=== PATIENT | female | born 1950 | race Hispanic/Latino ===

== ENCOUNTER 2022-04-27 02:43 | Inpatient (IN) | payer OTHER ==
--- OUTSIDE RECORDS SUMMARY | 2022-04-27 02:46 | XMS REPORT | Continuity of Care Document ---
:1950 Author Organization [facility] t Address [address] [place] [address] Dr. Lima [address] [place] [id number] Care Team Providers Name Role Phone Vish-Mbayo_A_AH Attending Clinician Unavailable Vish-Mbayo_A_AH Admitting Clinician Unavailable Payers Payer Name Policy Type Policy Number Effective Date Expiration Date S gerry [facility] - [id number] 2019 [employer] 00:00:00 (MEDICARE REPLACEMENT/ADVANT AGE - HMO) Problems This patient has no known problems. Allergies, Adverse Reactions, Alerts This patient has no known allergies or adverse reactions. Medications This patient has no known medications. Procedures This patient has no known procedures. Encounters Start End Encounter Admission Attending Care Care Encounter Source Date/Time Date/Time Type Type Clinicians Facility Department ID 2020-01-26 2020-01-26 Outpatient Vish-Mbayo VFP VFP [id number] [facility] 05:44:00 05:44:00 _A_AH [id number] Family Practic e 2020-01-26 2020-01-26 Outpatient Vish-Mbayo VFP VFP [id number] [facility] 05:44:00 05:44:00 _A_AH [id number] Family Practic e 2020-01-26 2020-01-26 Outpatient Vish-Mbayo VFP VFP [phone] [facility] 05:44:00 05:44:00 _A_AH [id number] Family Practic e 2020-01-26 2020-01-26 Outpatient Vish-Mbayo VFP VFP [id number] [facility] 05:44:00 05:44:00 _A_AH [id number] Family Practic e 2020-01-04 2020-01-04 Outpatient Vish-Mbayo VFP VFP [phone] [facility] 07:20:00 07:20:00 _A_AH [id number] Family Practic e Results This patient has no known results.
[2022-04-27] MEDS ORDERED: MORPHINE 2 MG/ML SYR ONE (04:37)
[2022-04-27] MEDS ORDERED: ONDANSETRON 4 MG/2 ML VIAL ONE (04:37)
[2022-04-27 05:21] LABS: Absolute Lymphocytes (CBC) 1.7 K/uL (0.7-4.9); Hematocrit 43.6 % (36.0-45.0); Lymphocytes % 15.2 % (15.3-44.8); MPV 8.9 fL (7.6-11.3); RBC Red Blood Cell Count 5.04 M/uL (3.86-4.86)
[2022-04-27 05:50] LABS: Potassium 3.9 mmol/L (3.5-5.1)
[2022-04-27] MEDS ORDERED: ASPIRIN 81 MG CHEWABLE TABLET ONE (06:15)
--- NOTE | 2022-04-27 07:30 | ER ---
Nurse's Notes [facility] Name: Linda Valerio Age: 71 yrs Sex: Female : 1950 Arrival Date: 04/27/2022 Time: 02:46 Bed 14 Private MD: Diagnosis: Subsequent non-ST elevation (NSTEMI) myocardial infarction Presentation: 04/27 03:02 Chief complaint: Patient's son or daughter states: She was complaining of right arm jb4 pain that started yesterday and nausea that started today and Chest pain that started upon arrival to the ED. The chest pain is a pressure pain. Coronavirus screen: At this time, the client does not indicate any symptoms associated with coronavirus-19. Ebola Screen: No symptoms or risks identified at this time. Initial Sepsis Screen: Does the patient meet any 2 criteria? No. Patient's initial sepsis screen is negative. Does the patient have a suspected source of infection? No. Patient's initial sepsis screen is negative. Risk Assessment: Do you want to hurt yourself or someone else? Patient reports no desire to harm self or others. Onset of symptoms was April 27, 2022. Transition of care: patient was not received from another setting of care. 03:02 Method Of Arrival: Wheelchair jb4 03:02 Acuity: MAKAYLA 3 jb4 Triage Assessment: 07:45 GI: Reports cramping. jd3 Historical: - Allergies: 03:04 No Known Allergies; jb4 - Home Meds: 03:04 amlodipine oral [Active]; atorvastatin oral [Active]; jb4 - PMHx: 03:04 HTN; High cholesterol; Hypothyroidism; jb4 - PSHx: 03:04 None; jb4 - Immunization history:: Adult Immunizations not up to date. - Social history:: Smoking status: Patient denies any tobacco usage or history of. Screenin:20 Abuse screen: Denies threats or abuse. Nutritional screening: No deficits noted. bb Tuberculosis screening: No symptoms or risk factors identified. Fall Risk None identified. Assessment: 03:20 General: Appears in no apparent distress. Behavior is calm, cooperative. Pain: bb Complains of pain in chest Pain radiates to right arm Pain began several weeks ago. Neuro: Level of Consciousness is awake, alert, obeys commands, Oriented to person, place, time, situation. Cardiovascular: Heart tones S1 S2 present Capillary refill < 3 seconds Patient's skin is warm and dry. Respiratory: Respiratory effort is even, unlabored, Respiratory pattern is regular, Breath sounds are clear bilaterally. GI: Abdomen is round Bowel sounds present X 4 quads. Abd is soft and non tender X 4 quads. Derm: Skin is pink, warm \T\ dry. Musculoskeletal: Circulation, motion, and sensation intact. 04:50 Reassessment: Patient is alert, oriented x 3, equal unlabored respirations, skin bb warm/dry/pink. pt ambulated with steady gait to the bathroom. 05:12 Reassessment: Patient is alert, oriented x 3, equal unlabored respirations, skin bb warm/dry/pink. IV site intact, patent, no erythema or edema noted, family at bedside awaiting diagnostic results Patient states feeling better. 06:15 Reassessment: pt sleeping, eyes closed, resp unlabored, arouses easily, awaiting bb diagnostic results family at bedside. 07:45 General: Appears in no apparent distress. comfortable, Behavior is calm, cooperative, jd3 appropriate for age. Pain: Complains of pain in chest Pain currently is 0 out of 10 on a pain scale. Quality of pain is described as aching. Neuro: Larsen Agitation-Sedation Scale (RASS): 0 - Alert and Calm Level of Consciousness is awake, alert, obeys commands, Oriented to person, place, time, situation. Cardiovascular: Capillary refill < 3 seconds Patient's skin is warm and dry. Rhythm is regular. Respiratory: Airway is patent Respiratory effort is even, unlabored, Respiratory pattern is regular, symmetrical, Denies cough, shortness of breath. GI: No signs and/or symptoms were reported involving the gastrointestinal system. : No signs and/or symptoms were reported regarding the genitourinary system. EENT: No signs and/or symptoms were reported regarding the EENT system. Derm: Skin is intact, Skin is dry, Skin is normal, Skin temperature is warm. Musculoskeletal: Circulation, motion, and sensation intact. Range of motion:. 08:36 Reassessment: No changes from previously documented assessment. Patient and/or family jd3 updated on plan of care and expected duration. Pain level reassessed. Patient is alert, oriented x 3, equal unlabored respirations, skin warm/dry/pink. 09:30 Reassessment: Patient appears in no apparent distress at this time. Patient and/or jd3 family updated on plan of care and expected duration. Pain level reassessed. Patient is alert, oriented x 3, equal unlabored respirations, skin warm/dry/pink. resting in bed on cell phone. awaiting admission. Vital Signs: 03:02 BP 135 / 73; Pulse 69; Resp 18; Temp 98.2(O); Pulse Ox 99% on R/A; Weight 95.25 kg (R); jb4 Height 5 ft. 4 in. (162.56 cm) (R); Pain 7/10; 05:12 BP 154 / 88; Pulse 67; Resp 16 S; Pulse Ox 93% on R/A; bb 06:16 BP 125 / 73; Pulse 69; Resp 16 S; Pulse Ox 94% on R/A; bb 07:15 BP 151 / 79; Pulse 70; Resp 17 S; Pulse Ox 97% on R/A; jd3 08:00 BP 142 / 74; Pulse 71; Resp 18 S; Pulse Ox 95% on R/A; jd3 09:00 BP 124 / 78; Pulse 67; Resp 16 S; Pulse Ox 95% on R/A; jd3 03:02 Body Mass Index 36.05 (95.25 kg, 162.56 cm) jb4 ED Course: 02:46 Patient arrived in ED. bp1 03:04 Triage completed. jb4 03:04 Arm band placed on left wrist. jb4 03:19 Karyn Power, RN is Primary Nurse. bb 03:20 Patient has correct armband on for positive identification. Placed in gown. Bed in low bb position. Call light in reach. Side rails up X 1. Adult w/ patient. Client placed on continuous cardiac and pulse oximetry monitoring. NIBP monitoring applied. 03:24 Jignesh Shelton MD is Attending Physician. [facility] 03:30 Initial lab(s) drawn, by me, sent to lab. Inserted saline lock: 20 gauge in right bb antecubital area, using aseptic technique. Blood collected. 04:16 XRAY Chest (1 view) In Process Unspecified. EDMS 05:57 Notified ED physician of a critical lab result(s). troponin of [address] Dr Shelton notified. bb 07:[address] Painter the business support associate manager business information with Dr. Shelton. eb 07:28 Laure Anand MD is Hospitalizing Provider. 7 08:32 Primary Nurse role handed off by Karyn Power RN eb 08:32 Frank Jules RN is Primary Nurse. jd3 09:52 No provider procedures requiring assistance completed. Patient admitted, IV remains in jd3 place. 10:00 Notified ED physician of a critical lab result(s). 200 PTT. provider note lab draw was jd3 to soon after loading dose and infusion start. PTT to be redrawn at 1145 per protocol. 10:21 Kamlesh Leonard MD is Hospitalizing Provider. kdr Administered Medications: 05:04 Drug: morphine 2 mg Route: IVP; Infused Over: 4 mins; Site: right antecubital; bb 06:02 Follow up: Response: Pain is decreased bb 05:04 Drug: Zofran (Ondansetron) 4 mg Route: IVP; Site: right antecubital; bb 06:02 Follow up: Response: No adverse reaction bb 06:15 Drug: Aspirin Chewable Tablet 324 mg Route: PO; bb 08:17 Follow up: Response: No adverse reaction jd3 07:45 Drug: Heparin (HI-Bolus No thrombolytic) - HEParin 60 units/kg {Co-Signature: iw (Mercedez Church RN).} Route: IVP; Site: right antecubital; 08:45 Follow up: Response: No adverse reaction jd3 07:45 Drug: Heparin (HI Drip) 12 units/kg/hr - (HEParin 10967 units, D5W 500 ml) jd3 {Co-Signature: stephanie (Mercedez Church RN).} Route: IV; Rate: calculated rate; Site: right antecubital; 08:45 Follow up: Response: No adverse reaction; IV Status: Infusion continued upon admission jd3 Medication: 08:34 VIS not applicable for this client. jd3 Outcome: 07:29 Decision to Hospitalize by Provider. 7 09:52 Condition: stable jd3 09:52 Instructed on the need for admit, Demonstrated understanding of instructions. 13:48 Patient left the ED. iw Signatures: Dis[facility] Bill Burgos MD MD kdr Karyn Power RN RN bb Mercedez Church RN RN iw Brian Wright RN RN jb4 Frank Jules RN RN jd3 Iris Campa Brittany bp1 Holmes, Maurice, MD MD mh7 Mercedez Church RN iw Corrections: (The following items were deleted from the chart) 08:37 08:36 BP 142 / 74; Pulse 71bpm; Resp 18bpm; Spontaneous; Pulse Ox 95% RA; jd3 jd3
--- NOTE | 2022-04-27 07:30 | EDPHYS ---
Physician Documentation [facility] Name: Linda Valerio Age: 71 yrs Sex: Female : 1950 Arrival Date: 04/27/2022 Time: 02:46 Bed 14 Private MD: ED Physician Jignesh Shelton HPI: 04/27 03:30 This 71 yrs old Unknown Female presents to ER via Wheelchair with complaints of Nausea, mh7 Arm Pain, Chest Pain > 30 y/o. 03:30 The patient or guardian reports chest pain that is located primarily in the substernal mh7 area. 03:30 Onset: yesterday. The pain does not radiate. Associated signs and symptoms: Pertinent mh7 positives: nausea, Pertinent negatives: cough, diaphoresis, dizziness, headache, lower extremity pain, lower extremity swelling, lightheadedness, near syncope, palpitations, recent travel, shortness of breath, syncope, vomiting. The chest pain is described as a pressure. Duration: The patient or guardian reports multiple episodes, that are intermittent, that wax and wane, with no pattern. Modifying factors: The symptoms are alleviated by nothing. the symptoms are aggravated by nothing. Severity of pain: At its worst the pain was moderate in the emergency department the pain has improved moderately. Historical: - Allergies: 03:04 No Known Allergies; jb4 - Home Meds: 03:04 amlodipine oral [Active]; atorvastatin oral [Active]; jb4 - PMHx: 03:04 HTN; High cholesterol; Hypothyroidism; jb4 - PSHx: 03:04 None; jb4 - Immunization history:: Adult Immunizations not up to date. - Social history:: Smoking status: Patient denies any tobacco usage or history of. ROS: 03:30 Constitutional: Negative for fever, chills, and weight loss, Eyes: Negative for injury, mh7 pain, redness, and discharge, ENT: Negative for injury, pain, and discharge, Neck: Negative for injury, pain, and swelling, Respiratory: Negative for shortness of breath, cough, wheezing, and pleuritic chest pain, Back: Negative for injury and pain, : Negative for injury, bleeding, discharge, and swelling, MS/Extremity: Negative for injury and deformity, Skin: Negative for injury, rash, and discoloration, Neuro: Negative for headache, weakness, numbness, tingling, and seizure, Psych: Negative for depression, anxiety, suicide ideation, homicidal ideation, and hallucinations, Allergy/Immunology: Negative for hives, rash, and allergies, Endocrine: Negative for neck swelling, polydipsia, polyuria, polyphagia, and marked weight changes, Hematologic/Lymphatic: Negative for swollen nodes, abnormal bleeding, and unusual bruising. Exam: 03:30 Constitutional: This is a well developed, well nourished patient who is awake, alert, mh7 and in no acute distress. Head/Face: Normocephalic, atraumatic. Eyes: Pupils equal round and reactive to light, extra-ocular motions intact. Lids and lashes normal. Conjunctiva and sclera are non-icteric and not injected. Cornea within normal limits. Periorbital areas with no swelling, redness, or edema. Neck: Trachea midline, no thyromegaly or masses palpated, and no cervical lymphadenopathy. Supple, full range of motion without nuchal rigidity, or vertebral point tenderness. No Meningismus. Chest/axilla: Normal chest wall appearance and motion. Nontender with no deformity. No lesions are appreciated. Cardiovascular: Regular rate and rhythm with a normal S1 and S2. No gallops, murmurs, or rubs. Normal PMI, no JVD. No pulse deficits. Respiratory: Lungs have equal breath sounds bilaterally, clear to auscultation and percussion. No rales, rhonchi or wheezes noted. No increased work of breathing, no retractions or nasal flaring. Abdomen/GI: Soft, non-tender, with normal bowel sounds. No distension or tympany. No guarding or rebound. No evidence of tenderness throughout. Back: No spinal tenderness. No costovertebral tenderness. Full range of motion. Skin: Warm, dry with normal turgor. Normal color with no rashes, no lesions, and no evidence of cellulitis. MS/ Extremity: Pulses equal, no cyanosis. Neurovascular intact. Full, normal range of motion. Neuro: Awake and alert, GCS 15, oriented to person, place, time, and situation. Cranial nerves II-XII grossly intact. Motor strength 5/5 in all extremities. Sensory grossly intact. Cerebellar exam normal. Normal gait. Psych: Awake, alert, with orientation to person, place and time. Behavior, mood, and affect are within normal limits. Vital Signs: 03:02 BP 135 / 73; Pulse 69; Resp 18; Temp 98.2(O); Pulse Ox 99% on R/A; Weight 95.25 kg (R); jb4 Height 5 ft. 4 in. (162.56 cm) (R); Pain 7/10; 05:12 BP 154 / 88; Pulse 67; Resp 16 S; Pulse Ox 93% on R/A; bb 06:16 BP 125 / 73; Pulse 69; Resp 16 S; Pulse Ox 94% on R/A; bb 07:15 BP 151 / 79; Pulse 70; Resp 17 S; Pulse Ox 97% on R/A; jd3 08:00 BP 142 / 74; Pulse 71; Resp 18 S; Pulse Ox 95% on R/A; jd3 09:00 BP 124 / 78; Pulse 67; Resp 16 S; Pulse Ox 95% on R/A; jd3 03:02 Body Mass Index 36.05 (95.25 kg, 162.56 cm) jb4 MDM: 07:22 Differential diagnosis: abnormal EKG, acute myocardial infarction, acute pericarditis, mh7 anxiety, coronary artery disease chest wall pain, costochondritis, gastritis, gastroesophageal reflux disease (GERD). HEART Score: History: Moderately Suspicious (1), ECG: Non specific repolarization disturbance / LBTB / PM (1), Age: > or = 65 years (2), Risk Factors: 1 or 2 risk factors (1), [Hypercholesterolemia] Troponin: > or = 3 x Normal Limit (2), Total Score = 7. Data reviewed: vital signs, nurses notes, lab test result(s), cardiac enzymes, CBC, electrolytes, radiologic studies, plain films. Data interpreted: Pulse oximetry: on room air is 96 %. Interpretation: normal. Counseling: I had a detailed discussion with the patient and/or guardian regarding: the historical points, exam findings, and any diagnostic results supporting the discharge/admit diagnosis, lab results, radiology results, the need for further work-up and treatment in the hospital. Response to treatment: the patient's symptoms have mildly improved after treatment. Physician consultation: Filemon Hernandez MD regarding patient's condition, and will see patient in inpatient room. 07:29 Patient medically screened. mh7 04/27 03:19 Order name: Basic Metabolic Panel; Complete Time: 06:02 04/27 03:19 Order name: CBC with Diff; Complete Time: 06:02 bb 04/27 03:19 Order name: Troponin HS; Complete Time: 06:02 bb 04/27 05:19 Order name: NT PRO-BNP; Complete Time: 06:02 EDMS 04/27 05:19 Order name: Lipase; Complete Time: 06:02 EDMS 04/27 07:38 Order name: Basic Metabolic Panel EDMS 04/27 07:38 Order name: CBC with Automated Diff EDMS 04/27 07:38 Order name: PTT, Activated Partial Thromb; Complete Time: 10:14 EDMS 04/27 07:38 Order name: CKMB Creatine Kinase MB EDMS 04/27 07:38 Order name: CKMB Creatine Kinase MB; Complete Time: 10:14 EDMS 04/27 07:38 Order name: CKMB Creatine Kinase MB EDMS 04/27 07:38 Order name: CKMB Creatine Kinase MB EDWA 04/27 03:19 Order name: XRAY Chest (1 view) 04/27 03:19 Order name: EKG; Complete Time: 03:20 04/27 07:38 Order name: CONS Physician Consult EDWA 04/27 07:38 Order name: EKG Electrocardiogram EDWA 04/27 07:38 Order name: Creatine Phosphokinase EDWA 04/27 07:38 Order name: Creatine Phosphokinase; Complete Time: 10:14 EDMS 04/27 07:38 Order name: Creatine Phosphokinase EDWA 04/27 07:38 Order name: Creatine Phosphokinase EDWA 04/27 08:23 Order name: SARS-COV-2 RT PCR (Document "Date of Onset" if Symptomatic) 04/27 09:39 Order name: SARS-COV-2 RT PCR; Complete Time: 10:14 EDMS 04/27 13:24 Order name: PTT, Activated Partial Thromb EDWA 04/27 03:19 Order name: Cardiac monitoring; Complete Time: 04:50 04/27 03:19 Order name: EKG - Nurse/Tech; Complete Time: 04:50 04/27 03:19 Order name: IV Saline Lock; Complete Time: 04:50 04/27 03:19 Order name: Labs collected and sent; Complete Time: 05:04 bb 04/27 03:19 Order name: O2 Per Protocol; Complete Time: 04:50 04/27 03:19 Order name: O2 Sat Monitoring; Complete Time: 04:50 04/27 07:38 Order name: EKG Electrocardiogram EDMS 04/27 07:38 Order name: EKG Electrocardiogram EDMS 04/27 07:38 Order name: EKG Electrocardiogram EDMS Administered Medications: 05:04 Drug: morphine 2 mg Route: IVP; Infused Over: 4 mins; Site: right antecubital; bb 06:02 Follow up: Response: Pain is decreased bb 05:04 Drug: Zofran (Ondansetron) 4 mg Route: IVP; Site: right antecubital; bb 06:02 Follow up: Response: No adverse reaction bb 06:15 Drug: Aspirin Chewable Tablet 324 mg Route: PO; bb 08:17 Follow up: Response: No adverse reaction jd3 07:45 Drug: Heparin ([place]-Bolus No thrombolytic) - HEParin 60 units/kg {Co-Signature: stephanie (Mercedez Church RN).} Route: IVP; Site: right antecubital; 08:45 Follow up: Response: No adverse reaction jd3 07:45 Drug: Heparin ([place] Drip) 12 units/kg/hr - (HEParin 33512 units, D5W 500 ml) jd3 {Co-Signature: stephanie (Mercedez Church RN).} Route: IV; Rate: calculated rate; Site: right antecubital; 08:45 Follow up: Response: No adverse reaction; IV Status: Infusion continued upon admission jd3 Disposition Summary: 04/27/22 07:29 Hospitalization Ordered Hospitalization Status: Inpatient Admission [facility] Condition: Stable [facility] Problem: new 7 Symptoms: have improved 7 Bed/Room Type: Standard [facility] Provider: Kamlesh Leonard(04/27/22 10:21) [facility] Room Assignment: [facility](04/27/22 11:22) [facility] Diagnosis - Subsequent non-ST elevation (NSTEMI) myocardial infarction [facility] Forms: - Medication Reconciliation Form mh7 - SBAR form 7 Signatures: Dispatcher [employer] EDBill Mandujano MD MD kdr Ballard, Brenda RN RN Brian Carlos, RN RN jb4 Frank Jules RN RN jd3 Jose Lizarraga RN RN ja1 Jignesh Shelton MD MD 7 Mercedez Church RN Corrections: (The following items were deleted from the chart) 05:18 03:23 PROBNP+C.LAB.BRZ ordered. EDMS EDMS 05:19 04:55 LIPASE+C.LAB.BRZ ordered. EDMS EDMS 10:21 07:29 Laure Anand [address] 11:22 07:29 Zach montgomery1
[2022-04-27] MEDS ORDERED: NITROGLYCERIN 0.4 MG/TAB SL PRN (07:32)
[2022-04-27] MEDS ORDERED: MORPHINE 4 MG/ML SYR IV PRN (07:32)
[2022-04-27] MEDS ORDERED: ONDANSETRON 4 MG/2 ML VIAL IV PRN (07:35)
[2022-04-27] MEDS ORDERED: HEPARIN 5000 UNIT/ML 1 ML VIAL ONE (07:47)
[2022-04-27] MEDS ORDERED: HEPARIN/D5W 25,000 UNIT/500 ML BAG IV SCH (08:00)
[2022-04-27] MEDS: ASPIRIN 325 MG TAB PO SCH ×2 (09:00)
[2022-04-27 10:04] LABS: CKMB Creatine Kinase MB 65.9 ng/mL (1.0-3.6)
[2022-04-27] MEDS ORDERED: ASPIRIN EC 325 MG TABLET PO ONE (10:56)
[2022-04-27 11:39] VITALS: BMI 36.0
--- NOTE | 2022-04-27 12:32 | P.HP ---
Certification for Inpatient Patient admitted to: Inpatient With expected LOS: >2 Midnights Patient will require the following post-hospital care: None Practitioner: I am a practitioner with admitting privileges, knowledge of patient current condition, hospital course, and medical plan of care. Services: Services provided to patient in accordance with Admission requirements found in Title 42 Section 412.3 of the Code of Federal Regulations Patient History Date of Service: 04/27/22 Reason for admission: Chest pain History of Present Illness: Patient is a 71-year-old female with a past medical history significant for hypertension, hyperlipidemia, hypothyroidism, allergic rhinitis, Obesity who presents with complaint of chest pain that has been ongoing intermittently for the past 2 weeks. Patient reported that chest pain became worse this morning when she woke up. Patient indicated that chest pain is located in the left chest wall and radiates to the right chest wall, right shoulder, right arm and to her back. Patient rated pain as 10/10 and described pain as pressure\stabbing in quality. Patient reported associated signs and symptoms of nausea, diaphoresis and headache. Patient denies any other signs and symptoms. Symptoms are aggravated or relieved by nothing. Patient decided to present to the hospital due to worsening symptoms. Allergies No Known Allergies Allergy (Verified 04/27/22 10:58) Home medications list reviewed: Yes Home Medications: Amlodipine [Norvasc] 5 mg PO DAILY 04/27/22 Atorvastatin Calcium 40 mg PO DAILY 04/27/22 - Past Medical/Surgical History Has patient received pneumonia vaccine in the past: No Diabetic: No -: hyperlipidemia -: HTN -: lipoma on rt shoulder -: tubal - Social History Smoking Status: Never smoker Alcohol use: No CD- Drugs: No Caffeine use: Yes Place of Residence: Home Review of Systems General: Other (Diaphoresis ) Eyes: Unremarkable ENT: Unremarkable Respiratory: Unremarkable Cardiovascular: Chest Pain Gastrointestinal: Unremarkable Genitourinary: Unremarkable Musculoskeletal: Shoulder Pain, Arm Pain, Back Pain Integumentary: Unremarkable Neurological: Other (Headache ) Lymphatics: Unremarkable Physical Examination - Vital Signs Temperature: 98.4 F Blood Pressure: 122/73 Pulse: 65 Pulse Ox (%): 97 - Physical Exam General: Alert, Oriented x3 HEENT: Normocephalic, PERRLA Neck: 2+ carotid pulse no bruit, JVD not distended Respiratory: Clear to auscultation bilaterally, Normal air movement Cardiovascular: No edema, Normal pulses, Regular rate/rhythm Capillary refill: <2 Seconds Gastrointestinal: Normal bowel sounds, Soft and benign Musculoskeletal: No clubbing, No swelling, No contractures, No erythema Integumentary: No rashes, No breakdown, No tenderness/swelling, No erythema Neurological: Normal speech, Normal strength at 5/5 x4 extr, Normal affect Lymphatics: No axilla or inguinal lymphadenopathy - Studies Laboratory Data (last 24 hrs) 04/27/22 04:55: Lipase Cancelled 04/27/22 04:35: WBC 10.9, Hgb 14.5, Hct 43.6, Plt Count 289 04/27/22 04:35: Sodium 137, Potassium 3.9, BUN 12, Creatinine 0.79, Glucose 153 H, Lipase 168 Assessment and Plan - Plan --NSTEMI. Troponin elevated. We will continue to trend serial troponins. Cardiology consulted. Patient started on heparin drip. Telemetry to monitor for any significant arrhythmia. Echocardiogram pending. Will await further recommendation from cloud automation tester. --Hypertension. Poorly controlled Continue home medications and hydralazine as needed. --HLD. Continue statin. --Class II obesity. Likely secondary to excess calories intake. Patient counseled on weight reduction, diet and exercise therapy. --Allergic rhinitis. Cetirizine as needed. --Acute pain. We will manage pain with current pain medication regimen. --Rhabdomyolysis. Patient placed on IV hydration. Will reassess CPK in a.m. --DVT prophylaxis with heparin drip. Discharge Plan: Home Plan to discharge in: Greater than 2 days - Advance Directives Does patient have a Living Will: No Does patient have a Durable POA for Healthcare: No - Code Status/Comfort Care Code Status Assessed: Yes Code Status: Full Code Physician Review: Patient Assessed, Agree with Above Assessment and Plan Critical Care: No
[2022-04-27 13:28] LABS: Lymphocytes % 17.6 % (15.3-44.8); MPV 8.1 fL (7.6-11.3); RBC Red Blood Cell Count 4.85 M/uL (3.86-4.86)
[2022-04-27] MEDS ORDERED: HYDRALAZINE HCL 20 MG/ML VIAL IV PRN (13:36)
[2022-04-27] MEDS ORDERED: CETIRIZINE HCL 5 MG TABLET PO PRN (13:39)
[2022-04-27 13:55] LABS: Potassium 4.2 mmol/L (3.5-5.1)
[2022-04-27] MEDS: NA CHLORIDE 0.9% 1,000 ML IV SCH (14:00)
[2022-04-27 16:51] LABS: CKMB Creatine Kinase MB 56.5 ng/mL (1.0-3.6)
--- NOTE | 2022-04-27 18:34 | CON ---
Date of Consultation: 04/27/2022 Reason For Consultation: Non-ST elevation myocardial infarction. History Of Present Illness: Ms. Valerio is a 71-year-old woman. Has a history of hypertension, dyslipidemia, hypothyroidism. Came in with 2-3 days of intermittent chest pain, nausea; symptoms rad iated to the arm, especially with exertion, lasted 30 minutes to an hour. Denied any vomiting, diaph oresis, PND, orthopnea, pedal edema, palpitation, or syncope. EKG was nonspecific, but troponin was 2539 consistent with IL. The patient is presently on heparin and she is asymptomatic. Allergies: NONE. Review of Systems: Negative. Social History: Negative. Family History: Noncontributory. Medications: At home include Lipitor and Norvasc. Physical Examination: Vital Signs: Stable. She was afebrile. HEENT: Negative. Neck: Supple with no bruit. Chest: Clear. Cardiac: Revealed a regular rhythm and rate. No murmurs, gallops, or rubs. Abdomen: Benign. Extremities: Revealed no clubbing, cyanosis, or edema. Diagnostic Data: As stated earlier. Impression And Plan: 1.Non-ST segment elevation myocardial infarction. 2.Hypertension. 3.Dyslipidemia. 4.Hypothyroidism. I will continue the patient on heparin. She should be on a baby aspirin and stat in as well as a low-dose beta-opal. We will plan a heart catheterization on 04/28/2022 to define her coronary anatomy. Also, an echocardiogram is pending. The patient understands the risk and the benefits of the procedure. She agrees to proceed. We will stop the heparin on-call to the warehouse general laborer. NATALIIA/TAMICA Voice ID: [id number] Report ID: [id number]
[2022-04-28 00:26] LABS: CKMB Creatine Kinase MB 27.7 ng/mL (1.0-3.6)
[2022-04-28] MEDS: NA CHLORIDE 0.9% 1,000 ML IV SCH ×2 (03:20→06:03)
[2022-04-28 04:27] LABS: Creatine Phosphokinase 413 U/L (26-192); NT PRO-BNP 3880 pg/mL (<125)
[2022-04-28] MEDS: ASPIRIN 325 MG TAB PO SCH (05:51)
[2022-04-28] MEDS ORDERED: PNEUMOCOCCAL VACCINE 0.5 ML IMVAC ONE (08:00)
[2022-04-28] MEDS ORDERED: AMLODIPINE 5 MG TAB PO SCH (09:00)
[2022-04-28] MEDS ORDERED: ATORVASTATIN 40 MG TAB PO SCH (09:00)
[2022-04-28] MEDS ORDERED: NA CHLORIDE 0.9% 500 ML ONE (09:03)
[2022-04-28] MEDS ORDERED: FENTANYL CITR 100 MCG/2 ML ONE (10:31)
[2022-04-28] MEDS ORDERED: MIDAZOLAM HCL 2 MG/2 ML INJ ONE (10:32)
[2022-04-28] MEDS ORDERED: NA CHLORIDE 0.9% 50 ML ONE (10:32)
[2022-04-28] MEDS ORDERED: ATROPINE SULF 1 MG/10 ML SYR IV ONE (10:32)
[2022-04-28] MEDS ORDERED: LIDOCAINE 1% 20 ML MDV ONE (10:33)
[2022-04-28] MEDS ORDERED: NITROGLYCERIN 100 MCG/ML SYR (for cath lab use only) IV ONE (10:33)
[2022-04-28] MEDS ORDERED: PRASUGREL (EFFIENT) 10 MG TAB ONE (11:28)
--- NOTE | 2022-04-28 12:26 | OP ---
Date of Procedure: 04/28/2022 Surgeon: Filemon Hernandez MD Ob Scrub Tech: Ms. Aline Patrick. Admitted to Dr. Leonard and Dr. Anand on 04/27/2022. Procedure In Detail: She was admitted with non-STEMI and brought to the collaborative physician on 04/28/2022, prep ped and draped in the routine sterile fashion. She was given Versed and fentanyl for sedation. A 6- Egyptian sheath introduced in the right common femoral artery successfully using Seldinger technique an d 10 cc of Xylocaine. Common femoral artery angiogram was normal. Angio-Seal was used to close the case. The patient underwent left heart catheterization, selective coronary arteriogram, common femor al artery angiogram, and primary stent of the LAD from the ostium to the proximal LAD. The Ismon c atheters initially were used to do the diagnostic catheterization. A JR4 was used to cannulated the right main. Her RCA was normal, small. Circumflex was normal. Left main was normal. The ostial LA D had 70% stenosis extending all the way to the mid LAD. In the mid LAD, there was a 95% stenosis wi th DONTA 2 flow. There was about a 30% to 40% ramus stenosis. We decided to intervene. A guide cath eter XBLAD, 6-Egyptian with side hole was used to cannulate the left main. A [place] wire 0.014 was use d to cross the lesion successfully. Two overlapping stents 2.5 x 16 were used to cover the entire re gion from the ostial to the mid LAD with excellent result 0% residual, no complication. Final angiog barry was done after given intracoronary nitroglycerin 100 mcg x2 with normal flow, no dissection, no thrombus. Total conscious sedation was 60 minutes. The patient received Angiomax during the proced ure. She received aspirin in the morning. She will receive 60 mg of Effient after the procedure was done. There were no complications. Blood loss was 5 mL. Postoperative Diagnosis: Coronary artery disease, status post successful primary LAD stent. Plan: To continue medical therapy, home today. She will go home on statin. She is on Norvasc alrea dy. I will put her on aspirin and Plavix. I will see her in the office in 2 weeks. I will discuss the case further with Dr. Marrero who is covering for Dr. Leonard today. NATALIIA/TAMICA Voice ID: [id number] Report ID: [id number]
--- NOTE | 2022-04-28 12:35 | RAD REPORT ---
EXAM DESCRIPTION: RAD - Chest Single View - 04/27/2022 4:14 am CLINICAL HISTORY: 71 years Female, CHEST PAIN COMPARISON: None. TECHNIQUE: Single portable x-ray view of the chest performed on 04/27/2022 at 4:11 AM FINDINGS: The lungs are relatively well-expanded. There is mild hazy opacification of the inferior h emithoraces which may be due to fibrosis and/or atelectasis. No dense airspace consolidation is ident ified. There is no evidence of a pneumothorax. The cardiac silhouette is normal in size and configuration. The mediastinal contours are normal. No acute osseous abnormality is identified. No acute soft tissue abnormalities are seen. Lines and tubes: None. Free air: None IMPRESSION: Mild hazy opacification of the inferior hemithoraces which may be due to fibrosis and/or atelectasis. The lungs are otherwise grossly clear. Electronically signed by: Kristal Cao DO 04/27/2022 6:21 AM CDT Due to temporary technical issues with the PACS/Fluency reporting system, reports are being signed by the in house radiologist without review as a courtesy to ensure prompt reporting. The interpreting r adiologist is fully responsible for the content of the report.
[2022-04-28 12:55] VITALS: O2SAT 97
--- NOTE | 2022-04-28 13:36 | EKG ---
Test Date: 2022-04-27 Test Time: 03:09:24 Bilingual Social Worker: MADONNA MEASUREMENT RESULTS: Intervals: Rate: 68 MA: 150 QRSD: 78 QT: 402 QTc: 427 Mona: P: 43 MA: 150 QRS: 8 T: 85 INTERPRETIVE STATEMENTS: Normal sinus rhythm Possible Anterior infarct, age undetermined Abnormal ECG No previous ECG available for comparison Electronically Signed On 04-28-22 13:34:10 CDT by Jeffry Connor
[2022-04-28] MEDS ORDERED: ACETAMINOPHEN 325 MG TABLET PO PRN (14:11)
[2022-04-28] MEDS ORDERED: NITROGLYCERIN 0.4 MG/TAB SL PRN (14:11)
[2022-04-28] MEDS ORDERED: NA CHLORIDE 0.9% 1,000 ML IV PRN (14:12)
[2022-04-28] MEDS ORDERED: MORPHINE 4 MG/ML SYR IV PRN (14:14)
[2022-04-28] MEDS ORDERED: MORPHINE 2 MG/ML SYR IV PRN (14:15)
[2022-04-28 17:54] VITALS: BP 119/68; TEMP 97.4
== END 2022-04-28 18:27 | disposition home or self-care (01) | DRG 247 ==
LOC: ER 02:43 → ERHOLD 07:31 → 2ND 11:25
PROVIDERS: ADMIT Internal Medicine; ATTEND Hospitalist
PROC: 027035Z Dilation of Coronary Artery, One Artery with Two Drug-eluting Intraluminal Devices, Percutaneous Approach (ICD-10-PCS; principal; 2022-04-28)
PROC: 4A023N7 Measurement of Cardiac Sampling and Pressure, Left Heart, Percutaneous Approach (ICD-10-PCS; 2022-04-28)
PROC: B201YZZ Plain Radiography of Multiple Coronary Arteries using Other Contrast (ICD-10-PCS; 2022-04-28)
DX: I21.4 Non-ST elevation (NSTEMI) myocardial infarction (principal); M62.82 Rhabdomyolysis; I10 Essential (primary) hypertension; E78.5 Hyperlipidemia, unspecified; E03.9 Hypothyroidism, unspecified; J30.9 Allergic rhinitis, unspecified; R52 Pain, unspecified; Z79.899 Other long term (current) drug therapy; E66.09 Other obesity due to excess calories; Z68.36 Body mass index [BMI] 36.0-36.9, adult; Z71.3 Dietary counseling and surveillance; Z20.822 Contact with and (suspected) exposure to COVID-19
CPT/HCPCS: 36415; 71045; 80048; 80061; 82550; 82553; 83036; 83690; 83880; 84484; 85025; 85347; 85730; 92928; 93005; 93454; 94760; 96365; 96375; 99285; C1725; C1760; C1877; C1893; G0269; J0583; J1644; J2250; J2270; J2405; J3010; J7030; J7040; Q9967; U0003

== ENCOUNTER 2022-09-01 22:23 | Emergency (ER) | payer OTHER ==
--- OUTSIDE RECORDS SUMMARY | 2022-09-01 22:26 | XMS REPORT | Continuity of Care Document ---
:1950 Author Organization [facility] t Address [address] [place] [address] [place] [id number] Care Team Providers Name Role Phone Vish-Mbayo_A_AH Attending Clinician Unavailable Vish-Mbayo_A_AH Admitting Clinician Unavailable Payers Payer Name Policy Type Policy Number Effective Date Expiration Date S gerry [facility] - [id number] 2019 [employer] 00:00:00 (MEDICARE REPLACEMENT/ADVANT AGE - [...] 2020-01-26 2020-01-26 Outpatient Vish-Mbayo VFP VFP [id number] [facility] 05:44:00 05:44:00 _A_AH [id number] Family Practic e 2020-01-26 2020-01-26 Outpatient Vish-Mbayo VFP VFP [id number] [facility] 05:44:00 05:44:00 _A_AH [id number] Family Practic e 2020-01-26 2020-01-26 Outpatient Vish-Mbayo VFP VFP [id number] [facility] 05:44:00 05:44:00 _A_AH [id number] Family Practic e 2020-01-26 2020-01-26 Outpatient Vish-Mbayo VFP VFP [id number] [facility] 05:44:00 05:44:00 _A_AH [id number] Family Practic e 2020-01-04 2020-01-04 Outpatient Vish-Mbayo VFP VFP [id number] [facility] 07:20:00 07:20:00 _A_ [id number] Family Practic e Results This patient has no known results.
[2022-09-01 23:50] LABS: Absolute Lymphocytes (CBC) 1.6 K/uL (0.7-4.9); Hematocrit 39.8 % (36.0-45.0); Lymphocytes % 18.5 % (15.3-44.8); MCV 87.9 fL (80-100); MPV 8.3 fL (7.6-11.3); RBC Red Blood Cell Count 4.53 M/uL (3.86-4.86)
[2022-09-02 00:07] LABS: Potassium 3.6 mmol/L (3.5-5.1); Troponin High Sensitivity 16.9 pg/mL (<58.9)
--- NOTE | 2022-09-02 01:28 | EDPHYS ---
Physician Documentation [facility] Name: Linda Valerio Age: 71 yrs Sex: Female : 1950 Arrival Date: 09/01/2022 Time: 22:26 Bed 12 Private MD: ED Physician Bernabe Bradford HPI: 09/02 00:04 This 71 yrs old Unknown Female presents to ER via Ambulatory with complaints of High kb Blood Pressure. 00:04 The patient has elevated blood pressure and discovered this at home, with a home kb device. Onset: The symptoms/episode began/occurred today. Associated signs and symptoms: The patient has no apparent associated signs or symptoms. Severity of symptoms: At its worst the blood pressure was 200 mm Hg. The patient has not experienced similar symptoms in the past. The patient has not recently seen a physician. Pt states she started feeling unwell today ("I can't describe it") so she checked her bp. States it was high and it has only gotten higher throughout the day. It was over 200 before coming in tonight. Reports she has had intermittent chest pain in the past, but no chest pain today. Denies dizziness, headache. Historical: - Allergies: 09/01 23:11 No Known Allergies; kd3 - Home Meds: 23:13 atorvastatin 80 mg oral tab 1 tab once daily [Active]; clopidogrel 75 mg oral tab 1 tab kd3 once daily [Active]; Ino Chewable Aspirin 81 mg oral chew 1 tab once daily [Active]; metoprolol tartrate 25 mg Oral tab 1 tab 2 times per day [Active]; - PMHx: 23:11 High Cholesterol; HTN; Hypothyroidism; kd3 - Immunization history:: Adult Immunizations up to date, Client reports having NOT received the Covid vaccine. - Social history:: Smoking status: Patient denies any tobacco usage or history of. ROS: 09/02 00:04 Constitutional: Negative for fever, chills, and weight loss. kb All other systems are negative. Exam: 09/01 23:23 Constitutional: This is a well developed, well nourished patient who is awake, alert, kb and in no acute distress. Head/Face: Normocephalic, atraumatic. ENT: Moist Mucous membranes Cardiovascular: Regular rate and rhythm with a normal S1 and S2. No gallops, murmurs, or rubs. No pulse deficits. Respiratory: Respirations even and unlabored. No increased work of breathing. Talking in full sentences Abdomen/GI: Soft, non-tender. No distention Skin: Warm, dry with normal turgor. Normal color. MS/ Extremity: Pulses equal, no cyanosis. Neurovascular intact. Full, normal range of motion. Neuro: Awake and alert, GCS 15, oriented to person, place, time, and situation. Moves all extremities. Normal gait. Psych: Awake, alert, with orientation to person, place and time. Behavior, mood, and affect are within normal limits. ECG was reviewed by the Attending Physician. Vital Signs: 23:06 BP 190 / 81; Pulse 68; Resp 19; Temp 98.4; Pulse Ox 100% on R/A; Weight 95.25 kg; kd3 Height 5 ft. 3 in. (160.02 cm); Pain 0/10; 23:50 BP 173 / 89; Pulse 61; Resp 16; Pulse Ox 100% ; jj7 09/02 00:59 BP 165 / 79; Pulse 59; Resp 16; Pulse Ox 99% ; Pain 1/10; jj7 01:54 BP 158 / 78; Pulse 60; Resp 16; Pulse Ox 100% ; jj7 09/01 23:06 Body Mass Index 37.20 (95.25 kg, 160.02 cm) kd3 MDM: 09/01 23:11 Patient medically screened. kb 09/02 00:04 Data reviewed: vital signs, nurses notes. Data interpreted: Pulse oximetry: on room air kb is 100 %. Interpretation: normal. 01:27 Counseling: I had a detailed discussion with the patient and/or guardian regarding: the kb historical points, exam findings, and any diagnostic results supporting the discharge/admit diagnosis, lab results, radiology results, the need for outpatient follow up, a family practitioner, to return to the emergency department if symptoms worsen or persist or if there are any questions or concerns that arise at home. 01:27 ED course: Pt will keep blood pressure log and follow up with Dr Hernandez. kb 09/01 23:48 Order name: Basic Metabolic Panel; Complete Time: 00:08 EDMS 09/01 23:48 Order name: Troponin High Sensitivity; Complete Time: 00:08 EDMS 09/01 22:45 Order name: EKG; Complete Time: 00:25 kb 09/01 22:45 Order name: Cardiac monitoring; Complete Time: 00:49 kb 09/01 22:45 Order name: EKG - Nurse/Tech; Complete Time: 23:22 kb 09/01 22:45 Order name: IV Saline Lock; Complete Time: 00:49 kb 09/01 23:29 Order name: Chest Single View EDMS 09/01 23:48 Order name: NT PRO-BNP; Complete Time: 00:08 EDMS 09/01 23:48 Order name: CBC with Automated Diff; Complete Time: 23:55 EDMS 09/01 22:45 Order name: Labs collected and sent; Complete Time: 00:49 kb 09/01 22:45 Order name: O2 Per Protocol; Complete Time: 00:49 kb 09/01 22:45 Order name: O2 Sat Monitoring; Complete Time: 00:49 kb 09/02 00:08 Order name: Vital Signs; Complete Time: 01:01 kb EC/17 23:23 Rate is 62 beats/min. Rhythm is regular. QRS [place] is Normal. CT interval is normal at kb 170 msec. QRS interval is normal at 74 msec. QT interval is normal at 424 msec. Administered Medications: No medications were administered Disposition: 09/02 02:15 Co-signature as Attending Physician, Bernabe Bradford MD. rn Disposition Summary: 09/02/22 01:28 Discharge Ordered Location: Home kb Condition: Stable kb Diagnosis - Essential (primary) hypertension kb Followup: kb - With: Emergency Department - When: As needed - Reason: Worsening of condition Followup: kb - With: Private Physician - When: 2 - 3 days - Reason: Recheck today's complaints, Continuance of care, Re-evaluation by your physician Discharge Instructions: - Discharge Summary Sheet kb - Hypertension, Adult, [id number] kb Forms: - Medication Reconciliation Form kb - Thank You Letter kb - Antibiotic Education kb - Prescription Opioid Use kb Signatures: Dispatcher [employer] EDHI Kathy Reyna FNP-Dmitriy FRAGOSOP-Bernabe Nuñez MD MD rn Doucette, Kyli, RN RN kd3 Corrections: (The following items were deleted from the chart) 00:32 00:25 BASIC METABOLIC PANEL+C.LAB.BRZ ordered. EDHI EDHI 00:32 00:25 CBC+H.LAB.BRZ ordered. EDMS EDMS 00:32 00:25 PROBNP+C.LAB.BRZ ordered. EDMS EDMS 00:32 00:25 Troponin High Sensitivity+C.LAB.BRZ ordered. EDMS EDMS 00:40 00:25 Chest Single View+RAD.RAD.BRZ ordered. EDMS EDMS
--- NOTE | 2022-09-02 01:28 | ER ---
Nurse's Notes [facility] Name: Linda Valerio Age: 71 yrs Sex: Female : 1950 Arrival Date: 09/01/2022 Time: 22:26 Bed 12 Private MD: Diagnosis: Essential (primary) hypertension Presentation: 09/01 23:06 Chief complaint: Patient states: I generally haven't felt well. i kept checking my kd3 blood pressure and it just keeps getting higher and higher. before we go here the blood pressure was over 200. Ebola Screen: No symptoms or risks identified at this time. Initial Sepsis Screen: Does the patient meet any 2 criteria? No. Patient's initial sepsis screen is negative. Does the patient have a suspected source of infection? No. Patient's initial sepsis screen is negative. Risk Assessment: Do you want to hurt yourself or someone else? Patient reports no desire to harm self or others. Onset of symptoms was September 01, 2022. 23:06 Method Of Arrival: Ambulatory kd3 23:06 Acuity: MAKAYLA 3 kd3 23:13 Coronavirus screen: Vaccine status: Patient reports receiving the 2nd dose of the covid kd3 vaccine. Triage Assessment: 23:11 General: Appears in no apparent distress. Behavior is calm, cooperative. Pain: kd3 Complains of pain in xiphoid area. Neuro: Level of Consciousness is awake, alert, obeys commands, Oriented to person, place, time, situation. Cardiovascular: Patient's skin is warm and dry. Respiratory: Airway is patent Trachea midline Respiratory effort is even, unlabored, Respiratory pattern is regular, symmetrical. Historical: - Allergies: 23:11 No Known Allergies; kd3 - Home Meds: 23:13 atorvastatin 80 mg oral tab 1 tab once daily [Active]; clopidogrel 75 mg oral tab 1 tab kd3 once daily [Active]; Ino Chewable Aspirin 81 mg oral chew 1 tab once daily [Active]; metoprolol tartrate 25 mg Oral tab 1 tab 2 times per day [Active]; - PMHx: 23:11 High Cholesterol; HTN; Hypothyroidism; kd3 - Immunization history:: Adult Immunizations up to date, Client reports having NOT received the Covid vaccine. - Social history:: Smoking status: Patient denies any tobacco usage or history of. Screenin:12 Abuse screen: Denies threats or abuse. Denies injuries from another. Nutritional kd3 screening: No deficits noted. Tuberculosis screening: No symptoms or risk factors identified. Fall Risk None identified. Assessment: 23:50 Reassessment: SEE TRIAGE ASSESSMENT. jj7 Vital Signs: 23:06 BP 190 / 81; Pulse 68; Resp 19; Temp 98.4; Pulse Ox 100% on R/A; Weight 95.25 kg; kd3 Height 5 ft. 3 in. (160.02 cm); Pain 0/10; 23:50 BP 173 / 89; Pulse 61; Resp 16; Pulse Ox 100% ; jj7 09/02 00:59 BP 165 / 79; Pulse 59; Resp 16; Pulse Ox 99% ; Pain 1/10; jj7 01:54 BP 158 / 78; Pulse 60; Resp 16; Pulse Ox 100% ; jj7 09/01 23:06 Body Mass Index 37.20 (95.25 kg, 160.02 cm) kd3 ED Course: 09/01 22:26 Patient arrived in ED. jj6 22:37 Kathy Reyna FNP-C is PHCP. kb 22:37 Bernabe Bradford MD is Attending Physician. kb 23:11 Triage completed. kd3 23:12 Patient has correct armband on for positive identification. kd3 23:12 No provider procedures requiring assistance completed. kd3 23:50 Inserted saline lock: 20 gauge in left antecubital area, using aseptic technique. jj7 ,using aseptic technique. INSERTED BY [facility] Blood collected. 09/02 00:04 Chest Single View In Process Unspecified. EDMS 00:48 Sanjuanita Hurd, CHARISSE is Primary Nurse. jj7 01:54 IV discontinued, intact, bleeding controlled, No redness/swelling at site. jj7 Administered Medications: No medications were administered Medication: 09/01 23:13 VIS not applicable for this client. kd3 Outcome: 09/02 01:28 Discharge ordered by . kb 01:54 Discharged to home ambulatory, with family. jj7 01:54 Condition: improved 01:54 Discharge instructions given to patient, family, Instructed on discharge instructions, follow up and referral plans. Demonstrated understanding of instructions, follow-up care. 01:56 Patient left the ED. jj7 Signatures: Dispatcher [employer] Kathy Zazueta, CARDIOTHORACIC ANESTHESIA TECHNICIAN-C CARDIOTHORACIC ANESTHESIA TECHNICIAN-Ckb Andie Bosch jj6 Juli Abbott, RN RN kd3 Sanjuanita Hurd RN RN jj7
[2022-09-02 02:06] VITALS: TEMP 98.4
[2022-09-02 02:24] VITALS: BP 158/78; O2SAT 100
--- NOTE | 2022-09-02 11:07 | RAD REPORT ---
EXAM DESCRIPTION: XR Chest, 1 View CLINICAL HISTORY: The patient is 71 years old and is Female; CHEST PAIN TECHNIQUE: Frontal view of the chest. COMPARISON: April 27, 2022 FINDINGS: Lungs: Low lung volumes bilaterally. Mildly prominent interstitial markings which may indicate mild interstitial edema. Pleural space: Blunting of the left costophrenic angle which may indicate left pleural effusion. Left hemidiaphragm is somewhat obscured which can be seen with left pleural effusion, as well as left lower lobe consolidation or atelectasis. No pneumothorax. Heart: Unremarkable. Mediastinum: Unremarkable. Bones/joints: Unremarkable. IMPRESSION: 1. Low lung volumes bilaterally. 2. Mildly prominent interstitial markings which may indicate mild interstitial edema. 3. Blunting of the left costophrenic angle which may indicate left pleural effusion. 4. Left hemidiaphragm is somewhat obscured which can be seen with left pleural effusion, as well as left lower lobe consolidation or atelectasis. Electronically signed by: Alvin Oropeza MD 09/02/2022 12:26 AM CDT Due to temporary technical issues with the PACS/Fluency reporting system, reports are being signed by the in house radiologists without review as a courtesy to insure prompt reporting. The interpreting radiologist is fully responsible for the content of the report.
--- NOTE | 2022-09-02 14:02 | EKG ---
Test Date: 2022-09-01 Test Time: 23:24:06 Analytics Analyst: LASHA MEASUREMENT RESULTS: Intervals: Rate: 62 AK: 170 QRSD: 74 QT: 418 QTc: 424 [place]: P: 22 AK: 170 QRS: 37 T: -15 INTERPRETIVE STATEMENTS: Normal sinus rhythm Anterior infarct, age undetermined T wave abnormality, consider inferior ischemia Abnormal ECG Compared to ECG 04/27/2022 03:09:24 T-wave abnormality now present Possible ischemia now present Myocardial infarct finding still present Electronically Signed On 09-02-22 14:00:34 CDT by Jeffry Connor
== END 2022-09-02 01:56 | disposition home or self-care (01) ==
LOC: ER 22:23
DX: I10 Essential (primary) hypertension (principal)
CPT/HCPCS: 36415; 71045; 80048; 83880; 84484; 85025; 93005; 99284

== ENCOUNTER 2023-03-28 11:47 | Emergency (ER) | payer OTHER ==
--- OUTSIDE RECORDS SUMMARY | 2023-03-28 11:51 | XMS REPORT | Continuity of Care Document ---
:1950 Author Organization [facility] t Address [address] [facility] [address] [place] [id number] Care Team Providers Name Role Phone DOMINICK BURGESS Attending Clinician Unavailable ALANNA DARLING Attending Clinician Unavailable JEREMIE HATHAWAY Attending Clinician Unavailable LAB90 Attending Clinician Unavailable Vish-Mbayo_A_AH Attending Clinician Unavailable Vish-Mbayo_A_AH Admitting Clinician Unavailable Payers Payer Name Policy Type Policy Number Effective Date Expiration Date S gerry [employer]CA I[employer]JA HMO 7 [id number] 2022 00:00:00 [facility] [id number] 2019 [employer] 00:00:00 (MEDICARE REPLACEMENT/ADVANT AGE - HMO) Problems Condition Condition Condition Status Onset Resolution Last Treating Co mments Source Name Details Category Date Date Treatment Clinician Date CAD CAD Disease Active 2021-11 Silvino (coronary (coronary 11-16 Seyb old artery artery 00:00: - disease) disease) 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 Social History Social Habit Start Date Stop Date Quantity Comments Source Tobacco use and 2022-09-16 2022-09-16 Smokeless tobacco Ke lsey Seybold - exposure 00:00:00 00:00:00 non-user External Alcohol intake 2022-09-16 2022-09-16 Ex-drinker Silvino Gupta bold - 00:00:00 00:00:00 (finding) External Sex [birth year] At [birth year] Silvino hook - 00:00:00 00:00:00 External Smoking Status Start Date Stop Date Source Never smoked tobacco Silvino Larose old - External Medications Ordered Filled Start Stop Current Ordering Indication Dosage Frequency Signature Comments Components Source Medication Medication Date Date Medication? Clinician (SIG) Name Name Atorvastati 2021-11 Yes 80mg Take 80 mg Silvino shepherd Calcium 0-02 by mouth Seybol d 80 MG oral 00:00: daily - Tablet 00 Externa l Clopidogrel 2021-11 Yes 1{tbl} Take 1 Ke lsey Bisulfate 0-02 tablet by Seybo ld 75 MG oral 00:00: mouth - Tablet 00 daily Externa l Metoprolol 2021-11 Yes 25mg Take 25 mg K elsey Tartrate 25 0-02 by mouth 2 Se ybold MG oral 00:00: times - Tablet 00 daily Externa l Vital Signs Vital Name Observation Time Observation Value Comments Source Systolic blood 2022-09-16 14:55:00 119 mm[Hg] Silvino ybold - pressure External Diastolic blood 2022-09-16 14:55:00 58 mm[Hg] Samanta bear Seybold - pressure External Heart rate 2022-09-16 14:55:00 81 /min Silvino simonbotrino - External Body temperature 2022-09-16 14:55:00 36.56 Abbey Emysoledad simon Seybold - External Respiratory rate 2022-09-16 14:55:00 14 /min Emy simon ybold - External Body height 2022-09-16 14:55:00 160 cm Silvino hurtado - External Body weight 2022-09-16 14:55:00 97.07 kg Silvino hurtado - External BMI 2022-09-16 14:55:00 37.91 kg/m2 Silvino hurtado - External Oxygen saturation in 2022-09-16 14:55:00 99 /min Silvino Gerardo - Arterial blood by External Pulse oximetry Procedures This patient has no known procedures. Encounters Start End Encounter Admission Attending Care Care Encounter Source Date/Time Date/Time Type Type Clinicians Facility Department ID 2023-05-26 2023-05-26 Outpatient SILVINO BURGESS [id number] Silvino 08:20:00 08:20:00 DOMINICK Seybo ld 2023-03-09 2023-03-09 Outpatient SILVINO DARLING [id number] Silvino 00:00:00 00:00:00 ALANNA Seybol d 2023-02-25 2023-02-25 Outpatient SILVINO BURGESS [id number] Silvino 10:40:00 10:40:00 DOMINICK Seybo ld 2023-02-24 2023-02-24 Outpatient SILVINO DARLING [id number] Silvino 00:00:00 00:00:00 ALANNA Seybol d 2023-01-27 2023-01-27 Outpatient SILVINO DARLING [id number] Silvino 00:00:00 00:00:00 ALANNA Seybol d 2023-01-27 2023-01-27 Outpatient SILVINO DARLING [id number] Silvino 00:00:00 00:00:00 ALANNA Seybol d 2022-12-24 2022-12-24 Outpatient SILVINO DARLING [id number] Silvino 00:00:00 00:00:00 ALANNA Seybol d 2022-10-28 2022-10-28 Outpatient MAGSILVINO MENESES [id number] Silvino 00:00:00 00:00:00 JEREMIE Seyb old 2022-09-22 2022-09-22 Outpatient SILVINO DARLING [id number] Silvino 00:00:00 00:00:00 ALANNA Seybol d 2022-09-16 2022-09-16 Outpatient LAB90 SILVINO DUBOIS [id number] Silvino 10:30:00 10:30:00 Seybol d 2022-09-16 2022-09-16 Outpatient SILVINO DARLING [id number] Silvino 09:30:00 09:30:00 ALANNA Seybol d 2020-01-26 2020-01-26 Outpatient Vish-Mbayo VFP VFP [id number] [facility] 05:44:00 05:44:00 _A_AH [id number] Family Practic e 2020-01-26 2020-01-26 Outpatient Vish-Mbayo VFP VFP [id number] [facility] 05:44:00 05:44:00 _A_AH [id number] Family Practic e 2020-01-26 2020-01-26 Outpatient Vish-Mbayo VFP VFP [id number] [facility] 05:44:00 05:44:00 _A_AH [id number] Family Practic e 2020-01-26 2020-01-26 Outpatient Vish-Mbayo VFP VFP [id number] [facility] 05:44:00 05:44:00 _A_AH [id number] Family Practic e 2020-01-04 2020-01-04 Outpatient Vish-Mbayo VFP VFP [id number] [facility] 07:20:00 07:20:00 _A_AH [id number] Family Practic e Results This patient has no known results.
[2023-03-28] MEDS ORDERED: NA CHLORIDE 0.9% 500 ML ONE (12:18)
[2023-03-28] MEDS ORDERED: MECLIZINE HCL 12.5 MG TAB ONE (12:18)
[2023-03-28] MEDS ORDERED: ONDANSETRON 4 MG/2 ML VIAL ONE (12:18)
[2023-03-28 12:41] LABS: Protime INR 0.99
[2023-03-28 13:28] LABS: Absolute Lymphocytes (CBC) 1.2 K/uL (0.7-4.9); Hematocrit 40.9 % (36.0-45.0); Lymphocytes % 16.1 % (15.3-44.8); MCV 87.1 fL (80-100); MPV 8.3 fL (7.6-11.3); RBC Red Blood Cell Count 4.69 M/uL (3.86-4.86)
[2023-03-28 13:47] LABS: Albumin 3.7 g/dL (3.4-5.0); Bilirubin Direct 0.1 mg/dL (0-0.2); Bilirubin Indirect, Calculated 0.4 (0.2-0.8); Bilirubin Total 0.5 mg/dL (0.2-1.0); Magnesium 2.1 mg/dL (1.6-2.4); Potassium 4.2 mEq/L (3.5-5.1); Protein, Total 7.9 g/dL (6.4-8.2); Troponin High Sensitivity 5.8 pg/mL (<58.9)
--- NOTE | 2023-03-28 13:57 | RAD REPORT ---
EXAM DESCRIPTION: RAD - Chest Single View - 03/28/2023 1:43 pm CLINICAL HISTORY: dizziness COMPARISON: Chest Single View dated 09/01/2022; Chest Single View dated 04/27/2022 FINDINGS: Lines: None. Lungs: Low lung volumes with some similar prominence of the basilar interstitial markings . Pleural: No significant pleural effusions or pneumothorax. Cardiac: Mild cardiomegaly. Mediastinum: Within normal limits. Bones: No acute fractures. Other: None IMPRESSION: Low lung volumes with mild basilar opacities favored to represent atelectasis and/or chr onic lung changes . Similar findings were present on the chest radiograph from 09/01/22.
--- NOTE | 2023-03-28 14:03 | RAD REPORT ---
EXAM DESCRIPTION: CT - Head Brain Wo Cont - 03/28/2023 1:56 pm CLINICAL HISTORY: DIZZINESS COMPARISON: Head angio dated 03/28/2023 TECHNIQUE: All CT scans are performed using dose optimization technique as appropriate and may inclu de automated exposure control or mA/KV adjustment according to patient size. FINDINGS: No intracranial hemorrhage, hydrocephalus or extra-axial fluid collection.No areas of brai n edema or evidence of midline shift. Mild chronic small vessel ischemic changes. Left maxillary sinus opacification with probable inspissated secretions . The calvarium is intact. IMPRESSION: No acute intracranial abnormality.
--- NOTE | 2023-03-28 14:05 | RAD REPORT ---
EXAM DESCRIPTION: CT - Head angio - 03/28/2023 1:56 pm CLINICAL HISTORY: DIZZINESS COMPARISON: No comparisons TECHNIQUE: CT angiography of the head was performed with maximum intensity reformatted images. All CT scans are performed using dose optimization technique as appropriate and may include automated exposure control or mA/KV adjustment according to patient size. FINDINGS: Anterior circulation: No aneurysm or large vessel occlusion. No hemodynamically significant stenosis. No arteriovenous malf ormation identified. Heavily calcified intracranial arteries. Posterior circulation: No aneurysm or large vessel occlusion. No hemodynamically significant stenosis. No arteriovenous malf ormation identified. IMPRESSION: No significant flow abnormality is detected.
--- NOTE | 2023-03-28 14:09 | RAD REPORT ---
EXAM DESCRIPTION: CT - Neck Angio - 03/28/2023 1:56 pm CLINICAL HISTORY: dizziness COMPARISON: No comparisons TECHNIQUE: CT angiography of the neck vessels was performed with maximum intensity reformatted image s. All CT scans are performed using dose optimization technique as appropriate and may include automated exposure control or mA/KV adjustment according to patient size. FINDINGS: A left aortic arch is identified with normal three vessel configuration of the great vesse ls. Mixed plaque present at the carotid bifurcation. Severe stenosis of the right external carotid artery proximally. A mild (less than 50%) stenosis of the right proximal ICA secondary to mixed plaque is n oted. Mixed plaque present at the left carotid bifurcation but no hemodynamically significant stenosi s . Normal flow is seen within both vertebral arteries. Diffusely enlarged multinodular thyroid. CAROTID STENOSIS REFERENCE USING NASCET CRITERIA: Mild - <50% stenosis. Moderate - 50-69% stenosis. Severe - 70-94% stenosis. Near occlusion - 95-99% stenosis. Occluded - 100% stenosis. IMPRESSION: No hemodynamically significant stenosis involving either common carotid or internal webb tid artery. Severe stenosis present at the right proximal external carotid artery. Both vertebral art eries are patent. Multinodular goiter. Nonemergent thyroid ultrasound could further evaluate if clinically indicated.
--- NOTE | 2023-03-28 14:14 | RAD REPORT ---
EXAM DESCRIPTION: CTAbdomen Pelvis W Contrast - 03/28/2023 1:56 pm CLINICAL HISTORY: ABD PAIN COMPARISON: No comparisons TECHNIQUE: CT of the abdomen and pelvis was performed. All CT scans are performed using dose optimization technique as appropriate and may include automated exposure control or mA/KV adjustment according to patient size. FINDINGS: Lower chest: Mild pulmonary fibrotic changes in the lower lungs. No acute process. Aortic root calcifications. Coronary artery calcifications. Question enlarged main pulmonary artery. Liver: Too small to characterize liver lesions which are likely benign. Biliary: No biliary ductal dilatation. Stomach: No significant focal abnormality. Duodenum: No significant focal abnormality. Pancreas: No significant abnormality. Spleen: No significant abnormality. Adrenal: No suspicious lesions. Kidney/ureter: No hydronephrosis. No renal calculi. 14 mm cyst with calcification in the right kidney . Right lower pole renal cyst. Retroperitoneum: No retroperitoneal adenopathy. Vascular: No aneurysm. Atherosclerosis. Bowel: Diverticulosis without diverticulitis. Normal appendix. Peritoneum: No ascites or free air.Nonspecific mesenteric edema. Bladder: Grossly unremarkable. Reproductive: No adnexal masses. Bones: No acute fracture. Other: n/a IMPRESSION: No acute intra-abdominal or pelvic finding. Normal appendix . Nonspecific mesenteric edema which can be seen with mesenteric panniculitis .
[2023-03-28] MEDS ORDERED: METOCLOPRAMIDE 10 MG/2mL INJ ONE (14:55)
[2023-03-28] MEDS ORDERED: DIAZEPAM 10 MG/2 ML INJ SYRINGE ONE (14:56)
[2023-03-28 15:17] LABS: Urine Bacteria >50 /HPF (<20); Urine Bilirubin NEGATIVE (Negative); Urine Blood Negative (Negative); Urine Clarity Clear (Clear); Urine Color Light-Yellow (Yellow); Urine Glucose NEGATIVE (Negative); Urine Mucus Slight /HPF (None Seen); Urine Protein NEGATIVE (Negative); Urine RBC <5 /HPF (None Seen); Urine Urobilinogen Normal (Normal); Urine WBC Clump Rare /HPF (None Seen)
--- NOTE | 2023-03-28 15:51 | EDPHYS ---
Physician Documentation [facility] Name: Lidna Valerio Age: 72 yrs Sex: Female : 1950 Arrival Date: 03/28/2023 Time: 11:47 Bed 6 Private MD: ED Physician Mathew Kohli HPI: 03/28 12:10 This 72 yrs old Female presents to ER via Ambulatory with complaints of cp Dizziness, Abdominal Problem. 12:10 The patient presents with dizziness, lightheadedness, feeling off balance, sense of cp spinning. Onset: The symptoms/episode began/occurred for past 2-3 months, worse over past 2 days. 12:10 Associated signs and symptoms: Pertinent positives: abdominal pain, nausea, vomiting, cp Pertinent negatives: blurred vision, chest pain, confusion, diaphoresis, focal weakness, head injury, palpitations, shortness of breath. Patient's baseline: Neuro: alert and fully oriented, Motor: no deficits, Ambulation: walks without assistance, Speech: normal. Historical: - Allergies: 11:58 No Known Allergies; aa5 - PMHx: 11:58 High Cholesterol; HTN; Hypothyroidism; aa5 - Immunization history:: Adult Immunizations unknown. - Social history:: Smoking status: Patient denies any tobacco usage or history of. ROS: 12:15 Constitutional: Positive for poor PO intake, Negative for body aches, chills, fever. cp 12:15 Eyes: Negative for injury, pain, redness, and discharge. cp 12:15 ENT: Negative for drainage from ear(s), ear pain, sore throat, difficulty swallowing, difficulty handling secretions. 12:15 Cardiovascular: Negative for chest pain, edema, palpitations. 12:15 Respiratory: Negative for cough, shortness of breath, wheezing. 12:15 Abdomen/GI: Positive for abdominal pain, nausea, vomiting, of the epigastric area, Negative for diarrhea, constipation. 12:15 Neuro: Positive for dizziness, general weakness, Negative for altered mental status, numbness, syncope. 12:15 All other systems are negative. Exam: 12:20 Constitutional: The patient appears in no acute distress, alert, awake, cp non-diaphoretic, non-toxic, well developed, well nourished, uncomfortable. 12:20 Head/Face: Normocephalic, atraumatic. cp 12:20 Eyes: Periorbital structures: appear normal, Pupils: equal, round, and reactive to light and accomodation, Extraocular movements: intact throughout, Conjunctiva: normal, no exudate, no injection, Sclera: no appreciated abnormality, Lids and lashes: appear normal, bilaterally. 12:20 ENT: External ear(s): are unremarkable, Ear canal(s): are normal, clear, TM's: dullness, bilaterally, Nose: is normal, Mouth: Lips: moist, Oral mucosa: pink and intact, moist, Posterior pharynx: is normal, airway is patent, no erythema, no exudate. 12:20 Neck: ROM/movement: is normal, is supple, without pain, no range of motions limitations, no meningismus, no nuchal rigidity. 12:20 Chest/axilla: Inspection: normal. 12:20 Cardiovascular: Rate: bradycardic, Rhythm: regular, Edema: is not appreciated, JVD: is not appreciated. 12:20 Respiratory: the patient does not display signs of respiratory distress, Respirations: normal, no use of accessory muscles, no retractions, labored breathing, is not present, Breath sounds: are clear throughout, no decreased breath sounds, no stridor, no wheezing. 12:20 Abdomen/GI: Inspection: abdomen appears normal, Bowel sounds: active, all quadrants, Palpation: soft, in all quadrants, mild abdominal tenderness, in the epigastric area, rebound tenderness, is not appreciated, involuntary guarding, is not appreciated. 12:20 Back: pain, is absent, ROM is normal. 12:20 Neuro: Orientation: to person, place \T\ time. Mentation: is normal, Cerebellar function: Romberg testing is negative, normal finger to nose testing, heel to leal testing is normal, Motor: moves all fours, strength is normal, Sensation: is normal. 12:58 ECG was reviewed by the Attending Physician. cp Vital Signs: 11:49 BP 166 / 72; Pulse 54; Resp 16 S; Temp 97.9(TE); Pulse Ox 100% on R/A; aa5 12:57 BP 151 / 76; Pulse 59; Resp 18; Pulse Ox 100% on R/A; ld1 13:21 BP 151 / 76; Pulse 57; Resp 18; Pulse Ox 100% on R/A; ld1 14:25 BP 152 / 69; Pulse 58; Resp 18; Pulse Ox 99% on R/A; ld1 15:00 BP 131 / 67; Pulse 66; Resp 18; Pulse Ox 93% on R/A; ld1 MDM: 11:51 Patient medically screened. 15:51 Data reviewed: vital signs, nurses notes, lab test result(s), EKG, radiologic studies, cp CT scan, plain films. 15:51 Differential diagnosis: cardiac arrhythmia, CVA, GI bleed, head injury, hypovolemia, cp sepsis, TIA. Consideration of Admission/Observation Escalation of care including admission/observation considered. I considered the following discharge prescriptions or medication management in the emergency department Medications were administered in the Emergency Department. See MAR. Counseling: I had a detailed discussion with the patient and/or guardian regarding: the historical points, exam findings, and any diagnostic results supporting the discharge/admit diagnosis, lab results, radiology results, the need for outpatient follow up, for definitive care, a neurologist. Response to treatment: the patient's symptoms have markedly improved after treatment, and as a result, I will discharge patient. 03/28 12:05 Order name: Basic Metabolic Panel; Complete Time: 14:13 03/28 14:13 Interpretation: Normal except: GLUC 132; GFR 87. 03/28 12:05 Order name: CBC with Diff; Complete Time: 14: 03/28 14:14 Interpretation: Normal except: LISA% 75.0. 03/28 12:05 Order name: LFT's; Complete Time: 14:13 03/28 14:14 Interpretation: Normal except: GLOB 4.2; A/G 0.9. 03/28 12:05 Order name: Magnesium; Complete Time: 14:13 03/28 12:05 Order name: NT PRO-BNP; Complete Time: 14:13 03/28 14:15 Interpretation: NT PRO-BNP 153; Reviewed. 03/28 12:05 Order name: PT-INR; Complete Time: 14:13 03/28 12:05 Order name: Troponin HS; Complete Time: 14:13 03/28 14:15 Interpretation: Troponin HS 5.8; Reviewed. 03/28 12:05 Order name: Urinalysis W/Microscopic; Complete Time: 15:26 cp 03/28 15:26 Interpretation: Normal except: UNIT 2+; UESTR 250; UWBC 20-50; UBACT >50. cp 03/28 15:24 Order name: Urine Culture EDMS 03/28 12:05 Order name: XRAY Chest (1 view); Complete Time: 14:13 cp 03/28 12:05 Order name: CT Head Brain wo Cont; Complete Time: 14:13 cp 03/28 12:05 Order name: CT Head Angio; Complete Time: 14:13 cp 03/28 14:16 Interpretation: Report reviewed. 03/28 12:05 Order name: CT Neck Angio; Complete Time: 14:13 cp 03/28 12:18 Order name: CT Abd/Pelvis - IV Contrast Only; Complete Time: 14:17 cp 03/28 14:21 Interpretation: Report reviewed. 03/28 12:05 Order name: EKG; Complete Time: 12:06 cp 03/28 12:05 Order name: Cardiac monitoring; Complete Time: 12:57 cp 03/28 12:05 Order name: EKG - Nurse/Tech; Complete Time: 12:57 cp 03/28 12:05 Order name: IV Saline Lock; Complete Time: 13:21 cp 03/28 12:05 Order name: Labs collected and sent; Complete Time: 13:21 cp 03/28 12:05 Order name: O2 Per Protocol; Complete Time: 12:26 cp 03/28 12:05 Order name: O2 Sat Monitoring; Complete Time: 12:26 cp 03/28 12:48 Order name: Labs - recollect needed: ALL TUBES; Complete Time: 13:20 hb 03/28 14:21 Order name: PO challenge; Complete Time: 14:31 cp 03/28 15:29 Order name: Misc. Order: ambulate patient; Complete Time: 15:34 cp EC:58 Rate is 55 beats/min. Rhythm is regular. NE interval is normal. QRS interval is normal. cp QT interval is normal. T waves are Inverted in lead aVR. Interpreted by me. Reviewed by me. Administered Medications: 12:25 Drug: Meclizine PO 25 mg Route: PO; ld1 13:27 Drug: Ondansetron IVP 4 mg Route: IVP; Site: left antecubital; ld1 13:27 Drug: NS 0.9% IV 500 ml Route: IV; Rate: 250 ml/hr; Site: left antecubital; ld1 14:59 Drug: Diazepam IVP 2 mg Route: IVP; Site: left antecubital; ld1 14:59 Drug: metoCLOPramide IVP 10 mg Route: IVP; Site: left antecubital; ld1 15:51 Drug: Rocephin IV 1 grams Route: IV; Rate: calculated rate; Site: right antecubital; kr3 Disposition Summary: 03/28/23 15:51 Discharge Ordered Location: Home cp Problem: new cp Symptoms: have improved cp Condition: Stable cp Diagnosis - Dizziness and giddiness cp - UTI/ Urinary tract infection, site not specified cp - Other acute sinusitis cp - Nausea with vomiting, unspecified cp - Epigastric pain cp Followup: cp - With: Pancho Irby MD - When: 2 - 3 days - Reason: dizziness Discharge Instructions: - Discharge Summary Sheet cp - Abdominal Pain, Adult cp - Dizziness cp - Nausea and Vomiting, Adult cp - Urinary Tract Infection, Adult cp Forms: - Medication Reconciliation Form cp - Thank You Letter cp - Antibiotic Education cp - Prescription Opioid Use cp Prescriptions: - Meclizine 25 mg Oral Tablet - take 1 tablet by ORAL route every 8 hours As needed; 30 tablet; Refills: 0, cp Product Selection Permitted - Zofran 4 mg Oral Tablet - take 1 tablet by ORAL route every 12 hours As needed; 20 tablet; Refills: 0, cp Product Selection Permitted - cefpodoxime 200 mg Oral Tablet - take 1 tablet by ORAL route every 12 hours with food; 20 tablet; Refills: 0, cp Product Selection Permitted Signatures: Dispatcher [employer] Afshan Berumen RN RN aa5 Rey August PA PA cp Gaby Beltrán RN RN hb Sims, Lauren, RN RN ld1 Kaylee Wong RN RN kr3 Corrections: (The following items were deleted from the chart) 03/29 14:38 03/28 12:10 Onset: The symptoms/episode began/occurred for past 2-3 months, cp cp
--- NOTE | 2023-03-28 15:51 | ER ---
Nurse's Notes [facility] Name: Linda Valerio Age: 72 yrs Sex: Female : 1950 Arrival Date: 03/28/2023 Time: 11:47 Bed 6 Private MD: Diagnosis: Dizziness and giddiness;UTI/ Urinary tract infection, site not specified;Other acute sinusitis;Nausea with vomiting, unspecified;Epigastric pain Presentation: 03/28 11:49 Chief complaint: Chief complaint: Chief complaint: Patient states: DIZZINESS X 2-3 aa5 MONTHS AGO AND GOT WORSE 2 DAYS AGO. 11:49 Onset of symptoms was March 2023. aa5 11:49 Method Of Arrival: Ambulatory aa5 11:49 Coronavirus screen: At this time, the client does not indicate any symptoms associated aa5 with coronavirus-19. Ebola Screen: Patient denies travel to an Ebola-affected area in the 21 days before illness onset. Initial Sepsis Screen: Does the patient meet any 2 criteria? No. Patient's initial sepsis screen is negative. Does the patient have a suspected source of infection? No. Patient's initial sepsis screen is negative. Risk Assessment: Do you want to hurt yourself or someone else? Patient reports no desire to harm self or others. 11:49 Acuity: MAKAYLA 3 aa5 Triage Assessment: 14:00 General: Appears in no apparent distress. comfortable, Behavior is calm, cooperative, ld1 appropriate for age. Pain: Denies pain. EENT: No signs and/or symptoms were reported regarding the EENT system. Neuro: Level of Consciousness is awake, alert, obeys commands, Oriented to person, place, time, situation, Reports dizziness. Cardiovascular: Capillary refill < 3 seconds Patient's skin is warm and dry. Rhythm is sinus rhythm. Respiratory: Airway is patent Respiratory effort is even, unlabored. GI: Abdomen is round non-distended. GI: Reports nausea. : No signs and/or symptoms were reported regarding the genitourinary system. Derm: No signs and/or symptoms reported regarding the dermatologic system. Musculoskeletal: No signs and/or symptoms reported regarding the musculoskeletal system. Historical: - Allergies: :58 No Known Allergies; aa5 - PMHx: :58 High Cholesterol; HTN; Hypothyroidism; aa5 - Immunization history:: Adult Immunizations unknown. - Social history:: Smoking status: Patient denies any tobacco usage or history of. Screenin:21 [facility] ED Fall Risk Assessment (Adult) History of falling in the last 3 months, ld1 including since admission No falls in past 3 months (0 pts). Abuse screen: Denies threats or abuse. Denies injuries from another. Nutritional screening: No deficits noted. Tuberculosis screening: No symptoms or risk factors identified. Assessment: 13:21 Reassessment: See triage assessment. ld1 Vital Signs: 11:49 BP 166 / 72; Pulse 54; Resp 16 S; Temp 97.9(TE); Pulse Ox 100% on R/A; aa5 12:57 BP 151 / 76; Pulse 59; Resp 18; Pulse Ox 100% on R/A; ld1 13:21 BP 151 / 76; Pulse 57; Resp 18; Pulse Ox 100% on R/A; ld1 14:25 BP 152 / 69; Pulse 58; Resp 18; Pulse Ox 99% on R/A; ld1 15:00 BP 131 / 67; Pulse 66; Resp 18; Pulse Ox 93% on R/A; ld1 ED Course: 11:48 Patient arrived in ED. ts1 11:49 Rey August PA is PHCP. cp 11:49 Mathew Kohli MD is Attending Physician. cp 11:49 Arm band placed on Patient placed in an exam room, on a stretcher. aa5 12:00 Triage completed. aa5 12:07 Radiology exam delayed due to lab results not completed at this time. (BUN/Creatinine) [id number] IV insertion attempt and/or patient not having appropriate IV at this time. 13:20 Inserted saline lock: 22 gauge in left antecubital area, using aseptic technique. Blood ld1 collected. 13:21 Patient has correct armband on for positive identification. Placed in gown. Bed in low ld1 position. Call light in reach. Side rails up X2. child monitor on. Pulse ox on. NIBP on. Door closed. Noise minimized. Warm blanket given. 13:21 No provider procedures requiring assistance completed. ld1 13:27 Trixie Maki, RN is Primary Nurse. ld1 13:45 XRAY Chest (1 view) In Process Unspecified. EDMS 13:57 CT Head Brain wo Cont In Process Unspecified. EDMS 13:58 CT Head Angio In Process Unspecified. EDMS 13:58 CT Neck Angio In Process Unspecified. EDMS 13:58 CT Abd/Pelvis - IV Contrast Only In Process Unspecified. EDMS 15:48 Pancho Irby MD is Referral Physician. cp 16:05 IV discontinued, intact, bleeding controlled, No redness/swelling at site. ld1 Administered Medications: 12:25 Drug: Meclizine PO 25 mg Route: PO; ld1 13:27 Drug: Ondansetron IVP 4 mg Route: IVP; Site: left antecubital; ld1 13:27 Drug: NS 0.9% IV 500 ml Route: IV; Rate: 250 ml/hr; Site: left antecubital; ld1 14:59 Drug: Diazepam IVP 2 mg Route: IVP; Site: left antecubital; ld1 14:59 Drug: metoCLOPramide IVP 10 mg Route: IVP; Site: left antecubital; ld1 15:51 Drug: Rocephin IV 1 grams Route: IV; Rate: calculated rate; Site: right antecubital; kr3 Medication: 13:21 VIS not applicable for this client. ld1 Outcome: 15:51 Discharge ordered by MD. cp 16:05 Discharged to home ambulatory, with family. ld1 16:05 Condition: stable 16:05 Discharge instructions given to patient, family, Instructed on discharge instructions, follow up and referral plans. medication usage, Demonstrated understanding of instructions, follow-up care, medications, Prescriptions given X 3. 16:05 Patient left the ED. ld1 Addendum: 03/31/2023 13:55 Addendum: Culture Results: Positive urine culture. No further action required. Bacteria k b3 sensitive to prescribed antibiotic. Signatures: Dispatcher [employer] EDMS Afshan Young RN RN aa5 Rey August PA PA cp Sims, Lauren, RN RN ld1 Kaylee Wong RN RN kr3 Dia Vaughan RN RN kb3 Vida Cumminsg10 Suzy Santos PAS PAS ts1 Corrections: (The following items were deleted from the chart) 03/28 12:00 11:49 Chief complaint: aa5 aa5 12:02 11:49 Chief complaint: Chief complaint: aa5 aa5
[2023-03-28] MEDS ORDERED: CEFTRIAXONE 1000 MG/VIAL ONE (15:53)
[2023-03-28 16:10] VITALS: TEMP 97.9
[2023-03-28 16:17] VITALS: BP 131/67; O2SAT 93
--- NOTE | 2023-03-30 11:46 | EKG ---
Test Date: 2023-03-28 Test Time: 12:52:59 Call Center Analyst: Jonathon CALVO MEASUREMENT RESULTS: Intervals: Rate: 55 DC: 168 QRSD: 78 QT: 418 QTc: 399 [place]: P: 27 DC: 168 QRS: 19 T: 54 INTERPRETIVE STATEMENTS: Sinus bradycardia Otherwise normal ECG Compared to ECG 09/01/2022 23:24:06 Sinus rhythm no longer present Myocardial infarct finding no longer present T-wave abnormality no longer present Possible ischemia no longer present Electronically Signed On 03-30-23 11:41:51 CDT by Filemon Hernandez
== END 2023-03-28 16:05 | disposition home or self-care (01) ==
LOC: ER 11:47
DX: N39.0 Urinary tract infection, site not specified (principal); J01.80 Other acute sinusitis; R11.2 Nausea with vomiting, unspecified; R10.13 Epigastric pain
CPT/HCPCS: 93005; 87088; 85025; 81001; 87086; 80048; 36415; 83735; 85610; 82565; 80076; 87077; 87186; 84484; 83880; 70450; 70496; 70498; 74177; 71045; 99285; Q9967; J8597; J2765; J3360; J2405; J7040; J0696